=== PATIENT | male | born 1965 | race Two or more races ===

== ENCOUNTER → 2024-09-04 | Outpatient (BNVA) | payer MEDICAID, SELFPAY | END | disposition home or self-care (01) | PROVIDERS: PCP Nurse Practitioner Family; Referring Provider Nurse Practitioner Family; Visit Provider Nurse Practitioner Family | DX: M54.2 Cervicalgia (principal); Z76.89 Persons encountering health services in other specified circumstances; Z13.220 Encounter for screening for lipoid disorders; R03.0 Elevated blood-pressure reading, without diagnosis of hypertension; Z12.5 Encounter for screening for malignant neoplasm of prostate; Z13.1 Encounter for screening for diabetes mellitus; E66.9 Obesity, unspecified; Z68.30 Body mass index [BMI] 30.0-30.9, adult; F10.90 Alcohol use, unspecified, uncomplicated; Z12.11 Encounter for screening for malignant neoplasm of colon | CPT/HCPCS: 96372; 99214; J1885 ==

== ENCOUNTER → 2024-09-20 | Outpatient (CLI) | payer MEDICAID, SELFPAY ==
--- NOTE | 2024-09-20 11:03 | XR_ITS ---
Examination: Shoulder,right, 3 views Technique: Shoulder AP internal rotation, AP external rotation, Y view shoulder, 3 views Exam date and time :September 20, 2024 1126 hours INDICATIONS: Injury to the shoulders 3 months ago with persistent pain FINDINGS: Moderate osteopenia No shoulder fracture or dislocation Mild narrowing glenohumeral joint No calcific tendinitis IMPRESSION: No fracture or shoulder dislocation
--- NOTE | 2024-09-20 11:03 | XR_ITS ---
Examination: PA lateral chest 2 views TECHNIQUE: Upright PA lateral chest 2 views Exam date and time: September 20, 1999 2520 hours INDICATIONS: Chest pain today, hypertension also today FINDINGS: Normal heart size. Lungs are clear. Mild osteopenia. IMPRESSION: No active disease
--- NOTE | 2024-09-20 11:03 | XR_ITS ---
Examination: Cervical spine 3 views Technique one AP lateral coned AP odontoid cervical spine 3 views Exam date and time: September 20, 1999 2532 hours INDICATIONS: Injury to the neck 3 months ago, onset neck pain beginning one month ago FINDINGS: Adequate alignment cervical vertebral bodies. No cervical fracture Early degenerative disc disease C4-C5 Intact odontoid IMPRESSION: No cervical fracture Early degenerative disc disease C4-C5 Incidental note significant bilateral soft tissue carotid calcification, consider correlation with carotid Doppler sonography follow-up
--- NOTE | 2024-09-20 11:03 | XR_ITS ---
Examination: Sternum 2 views TECHNIQUE: Lateral oblique sternum 2 views Exam date and time: August 20, 2025 1123 hours INDICATIONS: Sternal pain one month with palpable mass FINDINGS: No keyla cortical bone destruction No sternal fracture IMPRESSION: No keyla cortical bone destruction Suggest limited CT chest through the stone region without intravenous contrast follow-up
== END | disposition home or self-care (01) ==
PROVIDERS: PCP Nurse Practitioner Family; Referring Provider Nurse Practitioner Family; Visit Provider Nurse Practitioner Family
DX: Z23 Encounter for immunization (principal); R22.2 Localized swelling, mass and lump, trunk; G89.29 Other chronic pain; M25.511 Pain in right shoulder; M54.2 Cervicalgia; M50.321 Other cervical disc degeneration at C4-C5 level; I65.23 Occlusion and stenosis of bilateral carotid arteries; R07.9 Chest pain, unspecified; S49.91XS Unspecified injury of right shoulder and upper arm, sequela; S19.9XXS Unspecified injury of neck, sequela; X58.XXXS Exposure to other specified factors, sequela
CPT/HCPCS: 71046; 71120; 72040; 73030

== ENCOUNTER → 2024-09-20 | Outpatient (BNVA) | payer MEDICAID, SELFPAY | END | disposition home or self-care (01) | PROVIDERS: PCP Nurse Practitioner Family; Referring Provider Nurse Practitioner Family; Visit Provider Nurse Practitioner Family | DX: E11.9 Type 2 diabetes mellitus without complications (principal); Z00.01 Encounter for general adult medical examination with abnormal findings; Z01.810 Encounter for preprocedural cardiovascular examination; M54.2 Cervicalgia; R22.2 Localized swelling, mass and lump, trunk; M25.511 Pain in right shoulder; B35.1 Tinea unguium; F10.90 Alcohol use, unspecified, uncomplicated | CPT/HCPCS: 90471; 90686; 93005; 99212; 99215 ==

== ENCOUNTER → 2024-09-27 | Outpatient (BNVA) | payer MEDICAID, SELFPAY | END | disposition home or self-care (01) | PROVIDERS: PCP Nurse Practitioner Family; Referring Provider Nurse Practitioner Family; Visit Provider Nurse Practitioner Family | DX: Z71.2 Person consulting for explanation of examination or test findings (principal); M50.30 Other cervical disc degeneration, unspecified cervical region; I65.23 Occlusion and stenosis of bilateral carotid arteries; M25.511 Pain in right shoulder; M54.2 Cervicalgia; I10 Essential (primary) hypertension | CPT/HCPCS: 99214 ==